=== PATIENT | male | born 1975 | race Caucasian/White ===

== ENCOUNTER 2017-04-24 16:59 | Emergency (ER) | payer OTHER ==
[~2017-04-24] VITALS: Ht 182.9 cm; Wt 104.7 kg
[2017-04-24 17:05] VITALS: Ht 182.9 cm; Wt 104.7 kg
[2017-04-24] MEDS ORDERED: CIPRO 0.2%/HYDROCORTISONE 1% OTIC SUSP 10 ML BTL OT STA (17:15)
[2017-04-24] MEDS ORDERED: ACETAMINOPHEN 500 MG TAB PO STA (17:15)
[2017-04-24] MEDS ORDERED: IBUP-1050 PO (17:19)
--- NOTE | 2017-04-24 17:26 | EMERGENCY ROOM VISIT NOTE ---
ED Visit Note First contact with patient: 17:08 CHIEF COMPLAINT: Earache HISTORY OF PRESENT ILLNESS: This 41-year-old male patient presents to the emergency department and states they have had a left sided earache for two days. The pain is moderate, and is gradually increasing. They have noticed swelling and tenderness around the ear canal and pain below the ear on the upper neck. The pain is rated as aching, throbbing, and 9/10. The patient has not been swimming recently. The patient does not have a history of ear problems in the past. The patient has had other URI symptoms of sore throat, cough, and congestion and reports he has been blowing his nose a lot. The patient has not had a fever. The patient has taken ibuprofen with minimal relief of the pain. He does admit that he was using a Q-tip in his ear prior to his symptoms starting. He denies any headaches, vision changes, neck pain, chest pain, shortness of breath, dizziness or syncope, difficulty swallowing, nausea or vomiting, abdominal pain, or rash. REVIEW OF SYSTEMS: A 10 system review of systems was completed with positives and pertinent negatives listed in the HPI. ALLERGIES: No known allergies MEDICATIONS: Patient denies any current medications PMH: No significant past medical or surgical history SOCIAL HISTORY: Lives at home with family. He is not a smoker, denies tobacco, alcohol, drug use. PHYSICAL EXAM: Vital Signs: Reviewed Nurse's notes, vital signs stable. GENERAL : Pleasant and cooperative, in no acute distress, non toxic in appearance, well developed, well nourished. SKIN: Normal. MOUTH: The pharynx is normal in appearance and the tonsils are not enlarged. The airway is patent. There are no exudates over the tonsils. EARS: The left external auditory canal is mildly swollen and erythematous/inflamed and there is positive tragal tenderness. The tympanic membrane is intact, pearly rivas and does not appear to have an effusion. The right tympanic membrane is pearly rivas without erythema or bulging and the external auditory canal is clear. HEART: Regular rate and rhythm without murmurs gallops or rubs. LUNGS: Clear to auscultation bilaterally without wheezes, rales or rhonchi. No dullness to percussion. No accessory muscle use. No retractions. ED COURSE: I examined the patient. Differential diagnosis includes otitis externa, otitis media, cervical adenitis, retained foreign body, ruptured tympanic membrane, among others. Patient was given Tylenol for pain, with some improvement. There is no significant swelling of the ear canal, therefore a wick was not used. Ciprofloxacin HC otic suspension 3 drops were placed in the left ear, and the patient was sent home with the remainder of the bottle with instructions on continued use. The patient was encouraged to follow up with his PCP if his symptoms are not improving in the next week. He was also given return precautions should his symptoms worsen, he verbalized understanding. The patient was discharged home in stable condition. Current/Historical Medications Scheduled Ciprofloxacin-Hydrocortisone (Cipro Hc Otic), 3 DROPS OT BID Scheduled PRN Ibuprofen (Advil), 200 MG PO DAILY PRN for Pain or Fever Allergies Coded Allergies: No Known Allergies (Unverified , 04/24/17) Vital Signs Date Time Temp Pulse Resp B/P (MAP) Pulse Ox O2 Delivery O2 Flow Rate FiO2 04/24/17 18:37 36.6 103 16 145/83 98 04/24/17 18:16 103 16 145/83 98 Room Air 04/24/17 17:05 36.6 100 16 159/100 97 Room Air Medications Administered Medications (Trade) Dose Ordered Sig/Garcia Route Start Time Stop Time Status Last Admin Dose Admin Ciprofloxacin/ Hydrocortisone (Cipro Hc Otic Susp) 5 drops NOW STAT OT 04/24/17 17:15 04/24/17 17:18 DC 04/24/17 17:47 5 DROPS Acetaminophen (Tylenol Tab) 1,000 mg NOW STAT PO 04/24/17 17:15 04/24/17 17:18 DC 04/24/17 17:46 1,000 MG Departure Information Impression Primary Impression: Left otitis externa Dispostion Home / Self-Care Condition GOOD Prescriptions Ciprofloxacin-Hydrocortisone (CIPRO HC OTIC) 1 Jenae Jenae 3 DROPS OT BID for 7 Days, #1 BTL Prov: Tamiko Rutherford CRNP 04/24/17 Referrals Danyel Daniel M.D. (PCP) Patient Instructions ED Otitis Externa, [facility] Additional Instructions Ciprofloxacin ear drops, 3 drops in the left ear canal twice a day for 5 - 7 days until the pain and swelling are gone. Ibuprofen 600mg every 6-8 hours and/or Tylenol 1000mg every 8 hours as needed for the pain. Please follow up with your PCP in the next 4-5 days if your symptoms are not improving. You should also have your blood pressure rechecked, as this was high today. Please return to the emergency department for loss of hearing, blood or pus drainage from the ear, fevers > 101.5, facial swelling, difficulty breathing or swallowing, or any other worsening of your symptoms. Work Instructions Return To Work: 1 day Problem Qualifiers Primary Impression: Left otitis externa Chronicity: acute
[2017-04-24] MEDS ORDERED: CPROT OT (18:11)
[2017-04-24 18:37] VITALS: BP 145/83; PULSE 103; TEMP 36.6; O2SAT 98
== END 2017-04-24 18:38 | disposition home or self-care (01) ==
LOC: C.EDB 17:00 → C.EDD 18:38
DX: H60.92 Unspecified otitis externa, left ear (principal)